=== PATIENT | male | born 1995 | race African-American/Black ===

== ENCOUNTER 2019-07-23 17:15 | Observation (INO) ==
[2019-07-23] MEDS ORDERED: Nitroglycerin 0.4 MG TAB.SUBL SL PRN (17:36)
[2019-07-23] MEDS ORDERED: Aspirin 81 MG TAB.CHEW PO ONE (17:36)
[2019-07-23] MEDS ORDERED: *HR* Heparin 5,000 UNIT/ML VIAL ONE (17:37)
[2019-07-23] MEDS ORDERED: Aspirin 81 MG TAB.CHEW ONE (17:37)
[2019-07-23] MEDS ORDERED: 0.9 % Sodium Chloride 1,000 ML ONE (17:37)
[2019-07-23] MEDS ORDERED: *HR* Ticagrelor 90 MG TABLET ONE (17:37)
[2019-07-23] MEDS ORDERED: Nitroglycerin 0.4 MG TAB.SUBL SL ONE (17:38)
[2019-07-23 17:48] LABS: Basophils % 0.2 %; Eosinophils # 0.1 K/mcL (0.0-0.6); Eosinophils % 1.7 %; Hematocrit 37.6 % (37.5-50.1); Immature Granulocytes % 0.3 % (0-4); Lymphocytes # 1.9 K/mcL (0.6-4.6); Lymphocytes % 33.4 %; Mean Corpuscular HGB Conc 34.6 g/dL (31.6-35.5); Mean Corpuscular Hemoglobin 30.9 pg (28.0-33.3); Mean Corpuscular Volume 89.3 fL (83.0-100.0); Mean Platelet Volume 9.7 fL (9.4-12.4); Monocytes # 0.7 K/mcL (0.0-1.3); Monocytes % 12.5 %; Platelet Count 205 K/mcL (140-400); Red Blood Count 4.21 M/mcL (4.19-5.50); Red Cell Distribution Width 12.6 % (11.5-14.5); Segmented Neutrophils % 51.9 %; White Blood Count 5.8 K/mcL (4.3-11.1)
[2019-07-23] MEDS ORDERED: Ketorolac 15 MG/ML VIAL IVP ONE (17:50)
[2019-07-23 17:59] LABS: Activated Partial Thrombo Time 31.7 Seconds (26.0-36.0)
[2019-07-23 18:13] LABS: BUN/Creatinine Ratio 12 (6-26); Blood Urea Nitrogen 14 mg/dL (6-20); Calcium 9.3 mg/dL (8.6-10.3); Carbon Dioxide 28 mEq/L (23-29); Chloride 104 mEq/L (98-107); Glucose 88 mg/dL (70-105); Osmolality,Calculated 286 (280-300); Potassium 4.3 mEq/L (3.5-5.1); Sodium 138 mEq/L (136-145); eGFR For African Americans > 60 (> 60); eGFR For Non-African Americans > 60 (> 60)
[2019-07-23 18:15] LABS: Troponin I < 0.03 ng/mL (< 0.04)
[2019-07-23] MEDS ORDERED: Naloxone 0.4 MG/ML INJ IVP PRN (20:03)
[2019-07-23] MEDS ORDERED: Ibuprofen 400 MG TABLET PO PRN (20:06)
[2019-07-23] MEDS ORDERED: Ketorolac 15 MG/ML VIAL IVP PRN (20:06)
[2019-07-23 22:03] LABS: C-Reactive Protein < 5 mg/L (Less than 10)
[2019-07-23 22:16] LABS: Thyroid Stimulating Hormone 2.449 mcIU/mL (0.340-5.600)
[2019-07-24 00:21] LABS: Bilirubin,Urine Negative (Negative); Blood,Urine Negative (Negative); Clarity,Urine Clear (Clear); Color,Urine Yellow (Yellow); Glucose,Urine (UA) Normal (Normal); Ketones,Urine Negative (Negative); Leukocyte Esterase,Urine Negative (Negative); Nitrite,Urine Negative (Negative); PH,Urine 6.5 pH Units (5.0-8.0); Protein,Urine Negative (Neg-Trace); Urobilinogen,Urine Normal (Normal)
[2019-07-24 00:22] LABS: Amphetamine Screen,Urine Negative ng/mL (Cutoff=1000); Barbiturate Screen,Urine Negative ng/mL (Cutoff=200); Benzodiazepines Screen,Urine Negative ng/mL (Cutoff=200); Cannabinoid Screen,Urine Negative ng/mL (Cutoff = 50); Cocaine Screen,Urine Negative ng/mL (Cutoff= 300); Opiate Screen,Urine Negative ng/mL (Cutoff=300); Phencyclidine Screen,Urine Negative ng/mL (Cutoff=25)
[2019-07-24 02:04] LABS: Basophils % 0.3 %; Eosinophils # 0.1 K/mcL (0.0-0.6); Eosinophils % 1.8 %; Hematocrit 36.4 % (37.5-50.1); Hemoglobin 12.5 g/dL (12.9-16.9); Immature Granulocytes % 0.3 % (0-4); Lymphocytes # 2.6 K/mcL (0.6-4.6); Lymphocytes % 39.5 %; Mean Corpuscular HGB Conc 34.3 g/dL (31.6-35.5); Mean Corpuscular Hemoglobin 30.7 pg (28.0-33.3); Mean Corpuscular Volume 89.4 fL (83.0-100.0); Monocytes # 0.9 K/mcL (0.0-1.3); Monocytes % 13.1 %; Platelet Count 207 K/mcL (140-400); Red Blood Count 4.07 M/mcL (4.19-5.50); Red Cell Distribution Width 12.8 % (11.5-14.5); White Blood Count 6.6 K/mcL (4.3-11.1)
[2019-07-24 02:20] LABS: BUN/Creatinine Ratio 14 (6-26); Blood Urea Nitrogen 15 mg/dL (6-20); Calcium 9.1 mg/dL (8.6-10.3); Carbon Dioxide 26 mEq/L (23-29); Chloride 108 mEq/L (98-107); Glucose 89 mg/dL (70-105); Magnesium 2.2 mg/dL (1.6-2.6); Osmolality,Calculated 290 (280-300); Sodium 140 mEq/L (136-145); Troponin I < 0.03 ng/mL (< 0.04); eGFR For African Americans > 60 (> 60); eGFR For Non-African Americans > 60 (> 60)
[2019-07-24 11:10] VITALS: BP 120/68
== END 2019-07-24 12:55 | disposition home or self-care (01) ==
LOC: EMEROOARM 17:15 → 3BNU 17:15 → SUATTDRO 18:30 → 3BNU 19:04
PROVIDERS: ADMIT Internal Medicine; ATTEND Internal Medicine